=== PATIENT | male | born 1975 | race Two or more races ===

== ENCOUNTER 2018-05-23 09:34 | Emergency (ER) | payer MEDICAID ==
[~2018-05-23] VITALS: Ht 182.9 cm; Wt 70.8 kg
[2018-05-23 09:52] VITALS: BP 134/77
[2018-05-23] MEDS ORDERED: LIDOCAINE 1%-EPI 1:100,000 20 ML VIAL ONE (10:31)
[2018-05-23] MEDS ORDERED: LIDOCAINE 1%-EPI 1:100,000 20 ML VIAL TP ONE (11:00)
[2018-05-23] MEDS ORDERED: TDAP [DIPH/PERTUSSIS/TET] 0.5 ML VIAL IM ONE ×2 (11:00→11:15)
[2018-05-23] MEDS ORDERED: BACI/NEOM/POLY B OINT PKT 1 UDPKT PACKET TP ONE (11:00)
[2018-05-23] MEDS ORDERED: BACI/NEOM/POLY B OINT PKT 1 UDPKT PACKET ONE (11:15)
--- NOTE | 2018-05-23 11:51 | NUR ---
Patient discharged to home in stable condition. Written and verbal after care instructions given. Patient verbalizes understanding of instruction.
== END 2018-05-23 12:29 ==
LOC: ER 09:38
DX: S01.01XA Laceration without foreign body of scalp, initial encounter (principal); W01.0XXA Fall on same level from slipping, tripping and stumbling without subsequent striking against object, initial encounter; Y93.89 Activity, other specified; Y92.89 Other specified places as the place of occurrence of the external cause; Y99.8 Other external cause status
CPT/HCPCS: 12001; 70450; 90471; 90715; 99284; A4606; A6402; J3490; Z7610

== ENCOUNTER 2018-06-02 09:28 | Emergency (ER) | payer MEDICAID ==
[~2018-06-02] VITALS: Ht 180.3 cm; Wt 81.6 kg
[2018-06-02 09:28] VITALS: BP 127/74
--- NOTE | 2018-06-02 10:17 | NUR ---
MARINA REMOVED BY DR HUTCHINS. D/C IN STABLE CONDITION.
== END 2018-06-02 10:23 | disposition home or self-care (01) ==
LOC: ER 09:31
DX: S01.01XD Laceration without foreign body of scalp, subsequent encounter (principal); X58.XXXD Exposure to other specified factors, subsequent encounter
CPT/HCPCS: A4606; Z7610